=== PATIENT | female | born 1990 | race Caucasian/White ===

== ENCOUNTER 2018-02-16 09:34 | Emergency (ER) | payer MEDICAID ==
[~2018-02-16] VITALS: Ht 157.5 cm; Wt 77.1 kg
[2018-02-16 09:41] VITALS: BP_SYST 117
--- NOTE | 2018-02-16 09:47 | NUR ---
Patient to ER bed 7 to gown for evaluation. Side rails up. Report given to Noe COOK.
--- NOTE | 2018-02-16 09:48 | NUR ---
REPORT GIVEN TO VERA COOK. PT TO RM 4
--- NOTE | 2018-02-16 09:49 | NUR ---
Pt presents to ED with generalized rash to entire integument. Pt c/o itchiness and burning. Pt reports starting antibiotic bactrim. Denies SOB, swollen tongue or throat. Pt is A&ox4, in NAD
--- NOTE | 2018-02-16 09:50 | NUR ---
ER at bedside examining patient.
[2018-02-16] MEDS ORDERED: methylPREDNISolone SOD SUCC/PF 62.5 MG/ML VIAL IVP ONE (10:15)
[2018-02-16] MEDS ORDERED: DIPHENHYDRAMINE INJ 50 MG/ML VIAL IVP ONE (10:15)
[2018-02-16 11:48] VITALS: BP_SYST 125
--- NOTE | 2018-02-16 11:48 | NUR ---
Patient given written and verbal discharge instructions and verbalizes understanding. ER MD discussed with patient the results and treatment provided. Patient in stable condition. ID arm band removed. IV catheter removed intact and dressing applied, no active bleeding. Rx of Prednisone given. Patient educated on pain management and to follow up with PMD. Pain Scale 0/10. Opportunity for questions provided and answered. Medication side effect fact sheet provided.
== END 2018-02-16 11:48 | disposition home or self-care (01) ==
LOC: SED 09:34
DX: L53.0 Toxic erythema (principal); T37.0X5A Adverse effect of sulfonamides, initial encounter; Y92.89 Other specified places as the place of occurrence of the external cause
CPT/HCPCS: 96374; 96375; 99285; J1200; J2930

== ENCOUNTER 2018-07-03 10:39 | Emergency (ER) | payer MEDICAID ==
[~2018-07-03] VITALS: Ht 160 cm; Wt 68.0 kg
[2018-07-03 11:08] VITALS: BP_SYST 127
--- NOTE | 2018-07-03 12:23 | NUR ---
Pt brought by self, pt c/o cough and congestion, afebrile, skin pink and warm, cap refill <3, VS WNL. respirations even and unlabored.
--- NOTE | 2018-07-03 12:23 | NUR ---
Patient to ER bed H2 to gown for evaluation. Side rails up.
--- NOTE | 2018-07-03 12:24 | NUR ---
PT COMES IN WITH C/O SORE THROAT X 1 WEEK WITH CHILLS, DENIES FEVERS. PRODUCTIVE COUGH -WHITE PHLEGM. ALSO C/O RT EAR PAIN WITH MILD HEADACHE. VSS.
--- NOTE | 2018-07-03 12:25 | NUR ---
ER Dr. Salazar at bedside examining patient.
[2018-07-03 12:49] VITALS: BP_SYST 127
--- NOTE | 2018-07-03 12:49 | NUR ---
Patient given written and verbal discharge instructions and verbalizes understanding. ER MD discussed with patient the results and treatment provided. Patient in stable condition. ID arm band removed. Rx of tian KEYS w/ Simi given. Patient educated on pain management and to follow up with PMD. Pain Scale 0/10. Opportunity for questions provided and answered. Medication side effect fact sheet provided.
== END 2018-07-03 12:49 | disposition home or self-care (01) ==
LOC: SED 10:39
DX: J06.9 Acute upper respiratory infection, unspecified (principal)
CPT/HCPCS: 81025; 99283